=== PATIENT | female | born 1960 | race Caucasian/White ===

== ENCOUNTER → 2016-06-26 | Outpatient (CLI) | payer BC, OTHER ==
[~2016-06-26] MED LIST: BLAC160C PO; BUPR-168 GT; BUPR300T51 PO; E400C PO; ENAL5TAB PO; HYDR-34 PO; HYDR-3730 PO; MULT-974 PO; SUPPLEMENT; VITA1CAP PO; VITAMIN B COMPLEX
--- NOTE | 2016-07-01 17:30 | Diagnostic Imaging Report ---
Bilateral screening mammogram. The current study was also evaluated with a Computer Aided Detection (CAD) system. INDICATION: Screening. No current complaints stated on the questionnaire. COMPARISON: 06/21/15. FINDINGS: The breasts are composed of heterogeneously dense parenchyma which may decrease mammographic sensitivity. Benign-appearing calcifications are seen. There is a medial biopsy clip seen in the right breast. Allowing for technique and positional differences, no suspicious change is seen. IMPRESSION: Dense breasts with no definite change. ACR BI-RADS Category 2: Benign findings. Result letter will be mailed to the patient. Note: At least 10% of breast cancer is not imaged by mammography. Dictated by: Dictated on workstation # [id number]
== END ==
LOC: RAD 08:13
PROVIDERS: ATTEND Family Medicine
DX: Z12.31 Encounter for screening mammogram for malignant neoplasm of breast (principal)
CPT/HCPCS: 77067

== ENCOUNTER → 2017-07-07 | Outpatient (CLI) | payer BC ==
--- NOTE | 2017-07-07 12:23 | Diagnostic Imaging Report ---
INDICATION: Routine screening. COMPARISON: 06/26/2016 and 06/21/2015. TECHNIQUE: Bilateral 2D and 3D screening mammography was performed with CAD. FINDINGS: Both breasts are heterogeneously dense, limiting the sensitivity of mammography. No discrete mass or malignant appearing microcalcifications are seen. The axillae are unremarkable. IMPRESSION: No mammographic features suspicious for malignancy are identified. ACR BI-RADS Category 1: Negative. Result letter will be mailed to the patient. Note: At least 10% of breast cancer is not imaged by mammography. Dictated by: Dictated on workstation # [id number]
== END ==
LOC: RAD 07:03
PROVIDERS: ATTEND Family Medicine
DX: Z12.31 Encounter for screening mammogram for malignant neoplasm of breast (principal)
CPT/HCPCS: 77067

== ENCOUNTER → 2018-07-12 | Outpatient (CLI) | payer BC ==
--- NOTE | 2018-07-12 14:30 | Diagnostic Imaging Report ---
INDICATION: Routine screening. COMPARISON: 07/07/2017 and 06/26/2016. TECHNIQUE: 2D and 3D bilateral screening mammography was performed with CAD. FINDINGS: Both breasts remain heterogeneously dense, limiting the sensitivity of mammography. A biopsy clip in the medial right breast is again noted. The parenchymal pattern is stable. No mass or malignant appearing microcalcifications are seen. The axillae are unremarkable. IMPRESSION: No mammographic features suspicious for malignancy are identified. ACR BI-RADS Category 2: Benign findings. Result letter will be mailed to the patient. Note: At least 10% of breast cancer is not imaged by mammography. Dictated by: Dictated on workstation # [id number]
== END ==
LOC: RAD 07:16
PROVIDERS: ATTEND Family Medicine
DX: Z12.31 Encounter for screening mammogram for malignant neoplasm of breast (principal)
CPT/HCPCS: 77067

== ENCOUNTER → 2018-11-08 | Outpatient (CLI) | payer BC ==
--- NOTE | 2018-11-08 15:57 | Diagnostic Imaging Report ---
INDICATION: Rolled right ankle with pain and swelling. TIME OF EXAM: 01:59 p.m. FINDINGS: Three views of the right ankle were obtained. Alignment is normal. Ankle mortise is well maintained. Talar dome is smooth. No fracture or dislocation is seen. There is soft tissue swelling about the lateral ankle. IMPRESSION: Lateral soft tissue swelling. No acute bony abnormality is detected. Dictated by: Dictated on workstation # [id number]
== END ==
LOC: RAD 13:45
PROVIDERS: ATTEND Family Medicine
DX: M25.471 Effusion, right ankle (principal)
CPT/HCPCS: 73610

== ENCOUNTER → 2019-07-14 | Outpatient (CLI) | payer BC ==
[~2019-07-14] MED LIST changes: -BUPR300T51 PO; +BUPR300T98 PO
--- NOTE | 2019-07-18 12:38 | Diagnostic Imaging Report ---
INDICATION: Routine screening. COMPARISON: 07/12/2018 and 07/07/2017. TECHNIQUE: 2D and 3D bilateral screening mammography was performed with CAD. FINDINGS: Both breasts are heterogeneously dense, limiting the sensitivity of mammography. The parenchymal pattern is stable. There are benign calcifications. The biopsy clip in the medial right breast is stable. No mass or malignant appearing microcalcifications are seen. The axillae are unremarkable. IMPRESSION: No mammographic features suspicious for malignancy are identified. ACR BI-RADS Category 2: Benign findings. Result letter will be mailed to the patient. Note: At least 10% of breast cancer is not imaged by mammography. Dictated by: Dictated on workstation # [id number]
== END ==
LOC: RAD 14:52
PROVIDERS: ATTEND Family Medicine
DX: Z12.31 Encounter for screening mammogram for malignant neoplasm of breast (principal)
CPT/HCPCS: 77063; 77067

== ENCOUNTER → 2020-07-15 | Outpatient (CLI) | payer BC ==
--- NOTE | 2020-07-15 10:57 | Diagnostic Imaging Report ---
INDICATION: Routine screening. COMPARISON: 07/14/2019 and 07/12/2018. TECHNIQUE: 2D and 3D bilateral screening mammography was performed with CAD. FINDINGS: Both breasts are heterogeneously dense, limiting the sensitivity of mammography. A biopsy clip in the medial right breast is again noted. There is benign calcification in the left breast. No mass or malignant appearing microcalcifications are seen. The axillae are unremarkable. IMPRESSION: No mammographic features suspicious for malignancy are identified. ACR BI-RADS Category 2: Benign findings. Result letter will be mailed to the patient. Note: At least 10% of breast cancer is not imaged by mammography. Dictated by: Dictated on workstation # [id number]
== END ==
LOC: RAD 07:19
PROVIDERS: ATTEND Family Medicine
DX: Z12.31 Encounter for screening mammogram for malignant neoplasm of breast (principal)
CPT/HCPCS: 77063; 77067

== ENCOUNTER → 2021-07-16 | Outpatient (CLI) | payer BC ==
--- NOTE | 2021-07-16 10:02 | Diagnostic Imaging Report ---
Indication: Routine screening. Comparison is made with prior mammogram from 07/15/2020, 07/14/2019. 2-D and 3-D bilateral screening mammography was performed with CAD. CAD is utilized. The current study was also evaluated with a Computer Aided Detection (CAD) system. Both breasts are heterogeneously dense, limiting the sensitivity of mammography. The overall parenchymal pattern is stable. No dominant mass or malignant-appearing microcalcifications are seen. There are benign calcifications bilaterally. Axillae are unremarkable. IMPRESSION: BI-RADS Category 2 No mammographic features suspicious for malignancy are identified. ACR BI-RADS Category 2: Benign findings. Result letter will be mailed to the patient. Note: At least 10% of breast cancer is not imaged by mammography. Dictated by: Dictated on workstation # [id number]
== END ==
LOC: RAD 07:02
PROVIDERS: ATTEND Family Medicine
DX: Z12.31 Encounter for screening mammogram for malignant neoplasm of breast (principal)
CPT/HCPCS: 77063; 77067

== ENCOUNTER → 2022-07-10 | Outpatient (CLI) | payer BC ==
--- NOTE | 2022-07-10 11:53 | Diagnostic Imaging Report ---
INDICATION: Bilateral 3-D screening mammograms. COMPARISON: 07/16/2021 and 07/15/2020 There is moderate breast parenchymal density, bilaterally. There is no new dominant mass or suspicious calcification identified. Overall, there is no adverse change. IMPRESSION: Category 1, negative mammogram. Physical examination and annual mammographic followup are recommended. ACR BI-RADS Category 1: Negative. Result letter will be mailed to the patient. Note: At least 10% of breast cancer is not imaged by mammography. Dictated by: Dictated on workstation # [id number]
== END ==
LOC: RAD 07:01
PROVIDERS: ATTEND Family Medicine
DX: Z12.31 Encounter for screening mammogram for malignant neoplasm of breast (principal)
CPT/HCPCS: 77063; 77067